=== PATIENT | female | born 1980 | race Hispanic/Latino ===

== ENCOUNTER → 2020-03-17 | Day surgery (SDC) | payer OTHER ==
[~2020-03-17] MED LIST: AMBIEN10 MG PO; CLINDAMYCIN HC150 MG PO; CLONAZEPAM0.5 MG PO; FOLIC ACID PO; IBUPROFEN400 MG PO; LEXAPRO20 MG PO; LISINOPRIL5 MG PO; METHOTREXATE2.5 MG PO; ORENCIA125 MG/1 M SC; PANTOPRAZOLE SO40 MG PO
[2020-03-17 08:15] VITALS: BP 127/88
--- NOTE | 2020-03-17 09:19 | Operative Report ---
DATE OF PROCEDURE: 03/17/2020 SURGEON: Lev Prescott MD PREOPERATIVE DIAGNOSIS: Chronic gastroesophageal reflux disease. POSTOPERATIVE DIAGNOSES: 1. Small hiatal hernia. 2. Distal esophagitis at the gastroesophageal junction. 3. Gastroesophageal reflux disease. PREOPERATIVE INDICATION: Assess for mucosal disease. PROCEDURE: EGD with distal esophageal biopsy (CPT 91122). ANESTHESIA: Moderate sedation with IV propofol. ASSISTANTS: None. FLUID: As per anesthesia. EBL: Minimal. DRAINS: None. COMPLICATIONS: None. SPECIMENS: Distal esophageal biopsy. GRAFTS: None. FINDINGS: 1. Small hiatal hernia. 2. Distal esophagitis. 3. Food bolus in the stomach. PROCEDURE IN DETAIL: The patient was brought to the endoscopy suite. She was sedated with IV propofol. A preprocedure pause was performed. An adult-sized endoscope was introduced to the oropharynx and guided to the 2nd portion of the duodenum. No duodenal abnormalities were noted. There was some mild inflammatory changes in the gastric antrum. There was also distal esophagitis of the GE junction as well as a small hiatal hernia. There was a biopsy done at the distal esophagus at the level of the inflammation. Prior to removing the endoscope, the stomach was desufflated. The patient tolerated the procedure well. Type of wound was type 1, clean. Lev Prescott MD C/MODL /[id number]
== END | disposition home or self-care (01) ==
LOC: ENDO 05:19
PROVIDERS: ATTEND Surgery
DX: K21.9 Gastro-esophageal reflux disease without esophagitis (principal); K44.9 Diaphragmatic hernia without obstruction or gangrene; K20.9 Esophagitis, unspecified; K31.89 Other diseases of stomach and duodenum; F41.8 Other specified anxiety disorders; I10 Essential (primary) hypertension; M06.9 Rheumatoid arthritis, unspecified; E66.9 Obesity, unspecified; R06.02 Shortness of breath; F17.210 Nicotine dependence, cigarettes, uncomplicated; Z88.1 Allergy status to other antibiotic agents; Z88.0 Allergy status to penicillin; Z01.810 Encounter for preprocedural cardiovascular examination; Z01.812 Encounter for preprocedural laboratory examination; Z11.59 Encounter for screening for other viral diseases; Z68.32 Body mass index [BMI] 32.0-32.9, adult
CPT/HCPCS: 43239; 87635; 88305; 93005